=== PATIENT | female | born 1955 | race African-American/Black ===

== ENCOUNTER 2022-08-02 14:03 | Emergency (ER) | payer SELFPAY ==
[~2022-08-02] VITALS: Ht 154.9 cm; Wt 55.0 kg
[2022-08-02 14:07] VITALS: BP 116/76
[2022-08-02] MEDS ORDERED: LORAZEPAM 2MG/ML CPJ IV STA (15:07)
[2022-08-02] MEDS ORDERED: LORAZEPAM 2MG/ML CPJ IM ONE (15:15)
[2022-08-02] MEDS ORDERED: SODIUM CHLORIDE 0.9% 1,000 ML IV ONE (15:15)
== END 2022-08-02 15:25 | disposition left against medical advice (07) ==
LOC: ER 14:03
DX: R41.82 Altered mental status, unspecified (principal); R55 Syncope and collapse; R45.1 Restlessness and agitation; Z78.1 Physical restraint status
CPT/HCPCS: 93005; 99283; J7030